=== PATIENT | male | born 2000 | race African-American/Black ===

== ENCOUNTER 2024-11-23 16:34 | Emergency (ER) | payer MEDICAID, SELFPAY ==
[2024-11-23 16:44] VITALS: BP 115/92; PULSE 90; RESP 18; TEMP 36.1; O2SAT 100
[2024-11-23 17:26] LABS: Basophils Percent Auto 0.2 % (0.2-1.2); Hematocrit 46.9 % (42.0-52.0); Hemoglobin 15.7 g/dL (14.0-18.0); Immature Granulocyte Absolute 0.05 K/mm3 (0.00-0.031); Immature Granulocyte Percent A 0.3 % (0-0.5); Lymphocytes Absolute Auto 1.06 K/mm3 (0.9-3.2); Lymphocytes Percent Auto 7.3 % (18.3-44.2); Mean Corpuscular HGB Conc 33.5 g/dl (32-36); Mean Corpuscular Hemoglobin 28.4 pg (26-34); Mean Corpuscular Volume 84.8 fl (80-100); Mean Platelet Volume 9.8 fl (7.4-10.4); Neutrophils Absolute Auto 12.3 K/mm3 (1.3-6.7); Neutrophils Percent Auto 85.2 % (45.5-73.1); Platelet Count Result 235 k/mm3 (150-375); Red Blood Count 5.53 M/mm3 (4.6-6.20); Red Cell Distribution Width 13.8 % (11.5-14.5); White Blood Count 14.5 K/mm3 (4.5-10.0)
--- NOTE | 2024-11-23 17:26 | PC.NURSE ---
precautionary reg diet dinner tray ordered
[2024-11-23 17:37] LABS: Alanine Aminotransferase 62 U/L (6-50); Albumin Level 5.3 g/dL (3.5-5.1); Alkaline Phosphatase 76 U/L (38-126); Anion Gap 20 mmol/L (4-12); Aspartate Amino Transferase 168 U/L (17-59); Bilirubin,Total 3.4 mg/dL (0.2-1.3); Blood Urea Nitrogen 19 mg/dL (9-20); Calcium 9.8 mg/dL (8.4-10.2); Carbon Dioxide 21 mmol/L (22-30); Chloride 95 mmol/L (98-107); Estimated Glomerular Filt Rate 53; Ethanol < 10 mg/dL (<10); Glucose 79 mg/dL (65-110); Potassium 3.6 mmol/L (3.4-5.0); Sodium 136 mmol/L (137-145); Total Protein 10.3 g/dL (6.3-8.2)
[2024-11-23 17:42] LABS: Add Urine Microscopic? YES; Appearance Urine Cloudy (Clear); Bacteria Urine None Seen /hpf; Bilirubin Urine 2+ (Negative); Blood Urine 1+ (Negative); Color Urine Dark Yellow (Yellow); Glucose Urine UA Negative (Negative); Hyaline Casts Urine Present /lpf; Ketones Urine 2+ mg/dL (Negative); Leukocyte Esterase Ur Trace LEU/UL (Negative); Mucus Urine Present /lpf; Need Manual Microscopic Reviewed; Nitrate Urine Negative (Negative); Non Pathogenic Casts >20; Protein Urine 3+ mg/dL (Negative); RBC Urine 0-2 /hpf (0-2); Specific Grav Ur 1.029 (1.001-1.035); Squamous Epithelial Cell Urine Moderate /hpf (Few); WBC Urine 0-5 /hpf (0-3); pH Urine 5.5 (5.0-9.0)
[2024-11-23 17:51] LABS: Amphetamine Screen Urine Negative (Negative); Barbiturate Screen Urine Negative (Negative); Benzodiazepines Screen Urine Negative (Negative); Cannabinoid Screen Urine Positive (Negative); Cocaine Screen Urine Negative (Negative); Methadone Screen Urine Negative (Negative); Opiate Screen Urine Negative (Negative); Phencyclidine Screen Urine Negative (Negative)
[2024-11-23 18:08] LABS: Thyroid Stimulating Hormone Reflex 0.211 uIU/mL (0.465-4.68)
--- NOTE | 2024-11-23 18:27 | ED_ITS ---
HPI - General Adult General Chief complaint: Recheck/Abnormal Lab/Rx <Aj Hill MD - Last Filed: 11/23/24 18:31> Stated complaint: Overheated running from police <Aj Hill MD - Last Filed: 11/23/24 18:31> Time Seen by Provider: 11/23/24 16:59 <Aj Hill MD - Last Filed: 11/23/24 18:31> Source: patient <Aj Hill MD - Last Filed: 11/23/24 18:31> Mode of arrival: ambulatory <Aj Hill MD - Last Filed: 11/23/24 18:31> Limitations: no limitations <Aj Hill MD - Last Filed: 11/23/24 18:31> History of Present Illness HPI narrative: 23-year-old with a history of bipolar disorder, schizophrenia here for medication for his bipolar disorder. Patient states that he wants a ride from here to [place] and he does not know how to go around. He presently denies having any suicidal or homicidal ideation. <Aj Hill MD - Last Filed: 11/23/24 18:31> Onset (ago): unknown <Aj Hill MD - Last Filed: 11/23/24 18:31> Radiation: non-radiation <Aj Hill MD - Last Filed: 11/23/24 18:31> Review of Systems 2 Review of Systems: All systems reviewed & are unremarkable except as noted in HPI and below <Aj Hill MD - Last Filed: 11/23/24 18:31> Constitutional: Constitutional: Reports no additional constitutional complaints <Aj Hill MD - Last Filed: 11/23/24 18:31> Eyes: Eyes: Reports no additional eye complaints <Aj Hill MD - Last Filed: 11/23/24 18:31> ENT: Reports system reviewed and no additional complaints, except as documented <Aj Hill MD - Last Filed: 11/23/24 18:31> Cardiovascular: Cardiovascular: Reports no additional cardiovascular complaints <Aj Hill MD - Last Filed: 11/23/24 18:31> Respiratory: Respiratory: Reports no additional respiratory complaints < Aj Hill MD - Last Filed: 11/23/24 18:31> Gastrointestinal: Gastrointestinal: Reports no additional gastrointestinal complaints <Aj Hill MD - Last Filed: 11/23/24 18:31> Musculoskeletal: Musculoskeletal: Reports no additional musculoskeletal complaints <Aj Hill MD - Last Filed: 11/23/24 18:31> Neurologic: Reports system reviewed and no additional complaints, except as documented <Aj Hill MD - Last Filed: 11/23/24 18:31> Exam 2 Narrative: GENERAL: Well-appearing, well-nourished, and in no acute distress. HEAD: Normocephalic, atraumatic. EYES: PERRLA and EOMI. ENT: Nares clear, no rhinorrhea . NECK: Supple. CHEST: Clear to auscultation. No respiratory distress. HEART: Regular rate and rhythm. No murmur heard. Normal peripheral pulses. A. EXTREMITIES: Normal range of motion. No edema. SKIN: Warm, dry, no rash. NEURO: No focal deficits. Alert and oriented x3. PSYCH: Normal mood and affect. <Aj Hill MD - Last Filed: 11/23/24 18:31> Course Course Emergency Course: Patient is medically stable for psychiatric evaluation <Aj Hill MD - Last Filed: 11/23/24 18:31> Vital Signs Vital signs: Vital Signs Temperature 96.9 F L 11/23/24 16:44 Pulse Rate 90 11/23/24 16:44 Respiratory Rate 18 11/23/24 16:44 Blood Pressure 115/92 H 11/23/24 16:44 Pulse Oximetry 100 11/23/24 16:44 Temperature 98 F 11/23/24 20:46 Pulse Rate 92 11/23/24 20:46 Respiratory Rate 16 11/23/24 20:46 Blood Pressure 138/84 11/23/24 20:46 Pulse Oximetry 96 11/23/24 20:46 <Aj Hill MD - Last Filed: 11/23/24 18:31> Vital Signs Temperature 96.9 F L 11/23/24 16:44 Pulse Rate 90 11/23/24 16:44 Respiratory Rate 18 11/23/24 16:44 Blood Pressure 115/92 H 11/23/24 16:44 Pulse Oximetry 100 11/23/24 16:44 Temperature 98 F 11/23/24 20:46 Pulse Rate 92 11/23/24 20:46 Respiratory Rate 16 11/23/24 20:46 Blood Pressure 138/84 11/23/24 20:46 Pulse Oximetry 96 11/23/24 20:46 <Tu Steele MD - Last Filed: 11/24/24 00:51> Medical Decision Making MDM Narrative Medical decision making narrative: Patient care signed out to be by the daytime physician. Disposition at sign-out was anticipated discharge to home pending crisis evaluation. Patient denies any homicidal suicidal ideation. Crisis is helping to arrange set up with outpatient services. Patient did sign a safety agreement. <Tu Steele MD - Last Filed: 11/24/24 00:51> Vital Signs Vital Signs: Vital Signs Temperature 96.9 F L 11/23/24 16:44 Pulse Rate 90 11/23/24 16:44 Respiratory Rate 18 11/23/24 16:44 Blood Pressure 115/92 H 11/23/24 16:44 Pulse Oximetry 100 11/23/24 16:44 Temperature 98 F 11/23/24 20:46 Pulse Rate 92 11/23/24 20:46 Respiratory Rate 16 11/23/24 20:46 Blood Pressure 138/84 11/23/24 20:46 Pulse Oximetry 96 11/23/24 20:46 <Aj Hill MD - Last Filed: 11/23/24 18:31> Vital Signs Temperature 96.9 F L 11/23/24 16:44 Pulse Rate 90 11/23/24 16:44 Respiratory Rate 18 11/23/24 16:44 Blood Pressure 115/92 H 11/23/24 16:44 Pulse Oximetry 100 11/23/24 16:44 Temperature 98 F 11/23/24 20:46 Pulse Rate 92 11/23/24 20:46 Respiratory Rate 16 11/23/24 20:46 Blood Pressure 138/84 11/23/24 20:46 Pulse Oximetry 96 11/23/24 20:46 <Tu Steele MD - Last Filed: 11/24/24 00:51> Lab Data Result diagrams: 11/23/24 17:17 11/23/24 17:17 <Aj Hill MD - Last Filed: 11/23/24 18:31> Labs: Lab Results 11/23/24 Range/Units 17:17 WBC 14.5 H (4.5-10.0) K/mm3 RBC 5.53 (4.6-6.20) M/mm3 Hgb 15.7 (14.0-18.0) g/dL Hct 46.9 (42.0-52.0) % MCV 84.8 (80-100) fl MCH 28.4 (26-34) pg MCHC 33.5 (32-36) g/dl RDW 13.8 (11.5-14.5) % Plt Count 235 (150-375) k/mm3 MPV 9.8 (7.4-10.4) fl Immature Gran % (Auto) 0.3 (0-0.5) % Neut % (Auto) 85.2 H (45.5-73.1) % Lymph % (Auto) 7.3 L (18.3-44.2) % [place] % (Auto) 7.0 (2.6-8.5) % Eos % (Auto) 0.0 (0-4.4) % Baso % (Auto) 0.2 (0.2-1.2) % Lymph # (Auto) 1.06 (0.9-3.2) K/mm3 [place] # (Auto) 1.0 H (0.1-0.6) K/mm3 Eos # (Auto) 0.0 (0-0.3) K/mm3 Baso # (Auto) 0.0 (0.0-0.1) K/mm3 Abs Immat Gran (auto) 0.05 H (0.00-0.031) K/mm3 Absolute Neuts (auto) 12.3 H (1.3-6.7) K/mm3 Absolute Nucleated RBC 0.000 (0.0-0.012) K/mm3 Nucleated RBC % 0.0 (0.0-0.2) % Sodium 136 L (137-145) mmol/L Potassium 3.6 (3.4-5.0) mmol/L Chloride 95 L (98-107) mmol/L Carbon Dioxide 21 L (22-30) mmol/L Anion Gap 20 H (4-12) mmol/L BUN 19 (9-20) mg/dL Creatinine 1.61 H (0.7-1.3) mg/dL Estim Creat Clear Calc Not Reportable Estimated GFR 53 L (59 - ) Glucose 79 (65-110) mg/dL Calcium 9.8 (8.4-10.2) mg/dL Total Bilirubin 3.4 H (0.2-1.3) mg/dL AST 168 H (17-59) U/L ALT 62 H (6-50) U/L Alkaline Phosphatase 76 (38-126) U/L Total Protein 10.3 H (6.3-8.2) g/dL Albumin 5.3 H (3.5-5.1) g/dL TSH (Reflex) 0.211 L (0.465-4.68) uIU/mL Free T4 1.87 (0.78-2.19) ng/dL Total T3 1.13 (0.82-1.58) NG/ML Urine Color Dark yellow (Yellow) Urine Appearance Cloudy H (Clear) Urine pH 5.5 (5.0-9.0) Ur Specific [place] 1.029 (1.001-1.035) Urine Protein 3+ H (Negative) mg/dL Urine Glucose (UA) Negative (Negative) mg/dL Urine Ketones 2+ H (Negative) mg/dL Ur Blood (Man) 1+ H (Negative) Urine Nitrate Negative (Negative) Urine Bilirubin 2+ H (Negative) Urine Urobilinogen 1.0 (<2.0) mg/dL Add Ur Microanalysis Reviewed Leukocyte Esterase Rfl Trace H (Negative) RAIZA/UL Urine RBC 0-2 (0-2) /hpf Urine WBC 0-5 (0-3) /hpf Ur Squamous Epith Cells Moderate (Few) /hpf Urine Bacteria None seen /hpf Urine Casts >20 Hyaline Casts Present (None) /lpf Urine Mucus Present /lpf Urine Opiates Screen Negative (Negative) Urine Methadone Screen Negative (Negative) Ur Barbiturates Screen Negative (Negative) Ur Phencyclidine Scrn Negative (Negative) Ur Amphetamine Screen Negative (Negative) U Benzodiazepines Scrn Negative (Negative) Urine Cocaine Screen Negative (Negative) U Cannabinoids Screen Positive A (Negative) Ethyl Alcohol < 10 (<10) mg/dL <Aj Hill MD - Last Filed: 11/23/24 18:31> Lab Results 11/23/24 Range/Units 17:17 WBC 14.5 H (4.5-10.0) K/mm3 RBC 5.53 (4.6-6.20) M/mm3 Hgb 15.7 (14.0-18.0) g/dL Hct 46.9 (42.0-52.0) % MCV 84.8 (80-100) fl MCH 28.4 (26-34) pg MCHC 33.5 (32-36) g/dl RDW 13.8 (11.5-14.5) % Plt Count 235 (150-375) k/mm3 MPV 9.8 (7.4-10.4) fl Immature Gran % (Auto) 0.3 (0-0.5) % Neut % (Auto) 85.2 H (45.5-73.1) % Lymph % (Auto) 7.3 L (18.3-44.2) % [place] % (Auto) 7.0 (2.6-8.5) % Eos % (Auto) 0.0 (0-4.4) % Baso % (Auto) 0.2 (0.2-1.2) % Lymph # (Auto) 1.06 (0.9-3.2) K/mm3 [place] # (Auto) 1.0 H (0.1-0.6) K/mm3 Eos # (Auto) 0.0 (0-0.3) K/mm3 Baso # (Auto) 0.0 (0.0-0.1) K/mm3 Abs Immat Gran (auto) 0.05 H (0.00-0.031) K/mm3 Absolute Neuts (auto) 12.3 H (1.3-6.7) K/mm3 Absolute Nucleated RBC 0.000 (0.0-0.012) K/mm3 Nucleated RBC % 0.0 (0.0-0.2) % Sodium 136 L (137-145) mmol/L Potassium 3.6 (3.4-5.0) mmol/L Chloride 95 L (98-107) mmol/L Carbon Dioxide 21 L (22-30) mmol/L Anion Gap 20 H (4-12) mmol/L BUN 19 (9-20) mg/dL Creatinine 1.61 H (0.7-1.3) mg/dL Estim Creat Clear Calc Not Reportable Estimated GFR 53 L (59 - ) Glucose 79 (65-110) mg/dL Calcium 9.8 (8.4-10.2) mg/dL Total Bilirubin 3.4 H (0.2-1.3) mg/dL AST 168 H (17-59) U/L ALT 62 H (6-50) U/L Alkaline Phosphatase 76 (38-126) U/L Total Protein 10.3 H (6.3-8.2) g/dL Albumin 5.3 H (3.5-5.1) g/dL TSH (Reflex) 0.211 L (0.465-4.68) uIU/mL Free T4 1.87 (0.78-2.19) ng/dL Total T3 1.13 (0.82-1.58) NG/ML Urine Color Dark yellow (Yellow) Urine Appearance Cloudy H (Clear) Urine pH 5.5 (5.0-9.0) Ur Specific [place] 1.029 (1.001-1.035) Urine Protein 3+ H (Negative) mg/dL Urine Glucose (UA) Negative (Negative) mg/dL Urine Ketones 2+ H (Negative) mg/dL Ur Blood (Man) 1+ H (Negative) Urine Nitrate Negative (Negative) Urine Bilirubin 2+ H (Negative) Urine Urobilinogen 1.0 (<2.0) mg/dL Add Ur Microanalysis Reviewed Leukocyte Esterase Rfl Trace H (Negative) RAIZA/UL Urine RBC 0-2 (0-2) /hpf Urine WBC 0-5 (0-3) /hpf Ur Squamous Epith Cells Moderate (Few) /hpf Urine Bacteria None seen /hpf Urine Casts >20 Hyaline Casts Present (None) /lpf Urine Mucus Present /lpf Urine Opiates Screen Negative (Negative) Urine Methadone Screen Negative (Negative) Ur Barbiturates Screen Negative (Negative) Ur Phencyclidine Scrn Negative (Negative) Ur Amphetamine Screen Negative (Negative) U Benzodiazepines Scrn Negative (Negative) Urine Cocaine Screen Negative (Negative) U Cannabinoids Screen Positive A (Negative) Ethyl Alcohol < 10 (<10) mg/dL <Tu Steele MD - Last Filed: 11/24/24 00:51> Discharge Plan Discharge Clinical Impression: Medical clearance for psychiatric admission <Aj Hill MD - Last Filed: 11/23/24 18:31> Patient Disposition: Home <Aj Hill MD - Last Filed: 11/23/24 18:31> Condition: Stable <Aj Hill MD - Last Filed: 11/23/24 18:31> Instructions: Antibiotic Form <Aj Hill MD - Last Filed: 11/23/24 18:31> Additional Instructions: Continue to have close outpatient follow-up. If you have any worsening symptoms and please call or return to the emergency department. <Aj Hill MD - Last Filed: 11/23/24 18:31> Patient Language: Hebrew <Aj Hill MD - Last Filed: 11/23/24 18:31> Follow-up/Referrals: UNKNOWN,DOCTOR [Non-Staff] - <Aj Hill MD - Last Filed: 11/23/24 18:31>
[2024-11-23 18:45] LABS: Free T4 Free Thyroxine Reflex 1.87 ng/dL (0.78-2.19)
[2024-11-23 19:29] LABS: Total Triiodothyronine (T3) 1.13 NG/ML (0.82-1.58)
[2024-11-23 20:46] VITALS: BP 138/84; PULSE 92; RESP 16; TEMP 36.6; O2SAT 96
== END 2024-11-23 20:50 | disposition home or self-care (01) ==
PROVIDERS: Emergency Medicine; Emergency Provider Family Medicine
DX: F31.9 Bipolar disorder, unspecified (principal); F20.9 Schizophrenia, unspecified
CPT/HCPCS: 36415; 80053; 80307; 81001; 82077; 84439; 84443; 84480; 85025; 99284